=== PATIENT | female | born 1935 | race African-American/Black ===

== ENCOUNTER 2018-07-31 12:30 | Emergency (ER) | payer BC ==
[2018-07-31 12:50] VITALS: BP 119/59; PULSE 70; TEMP 98.6; BMI 36.3
--- NOTE | 2018-07-31 13:05 | PDOC ---
History of Present Illness - General Chief Complaint: Pain Stated Complaint: BACK PAIN Time Seen by Provider: 07/31/18 13:01 History Source: Patient Exam Limitations: No Limitations - History of Present Illness Initial Comments: 07/31/18 13:17 Came to ER department for evaluation of low back pain that initiated approximate 4 days ago. Denies trauma, exercise changes, and recent known exacerbant. Denies fever, denies any nausea or vomiting, denies any bowel changes. Denies dysuria or bleeding to urine. No history of kidney stones. States has had spasm in the past and doctor has given her some medication with relief but does not remember the name. Is unable to take ibuprofen but took Tylenol yesterday with some moderate resolved Occurred: reports: yesterday (3 days of pain that is worsening ) Severity: reports: mild, moderate Pain Location: reports: back Past History - Travel Traveled outside of the country in the last 30 days: Yes Close contact w/someone who was outside of country & ill: Yes - Past Medical History Allergies/Adverse Reactions: Allergies Allergy/AdvReac Type Severity Reaction Status Date / Time No Known Allergies Allergy Verified 07/31/18 12:47 Home Medications: Ambulatory Orders Amlodipine Besylate 10 mg PO ASDIR 07/31/18 Atorvastatin Calcium 20 mg PO ASDIR 07/31/18 Cephalexin Monohydrate [Keflex -] 500 mg PO Q8H #21 capsule 07/31/18 Triamterene/Hydrochlorothiazid [Triamterene-Hctz 37.5-25 mg Cp] 1 each PO ASDIR 07/31/18 COPD: No CHF: No - Surgical History Abdominal Surgery: No - Suicide/Smoking/Psychosocial Hx Smoking History: Current every day smoker Information on smoking cessation initiated: No Hx Alcohol Use: No Drug/Substance Use Hx: No Review of Systems - Review of Systems Able to Perform ROS?: Yes Is the patient limited Urdu proficient: Yes Constitutional: Yes: Symptoms Reported, See HPI, Malaise. No: Chills, Fever, Loss of Appetite HEENTM: Yes: See HPI. No: Symptoms Reported Respiratory: Yes: See HPI. No: Symptoms reported, Cough Cardiac (ROS): No: Symptoms Reported ABD/GI: No: Symptoms Reported Musculoskeletal: Yes: Symptoms Reported, See HPI, Back Pain, Muscle Pain ("spasm ) Integumentary: Yes: See HPI. No: Symptoms Reported, Rash Neurological: Yes: See HPI. No: Symptoms reported, Headache All Other Systems: Reviewed and Negative *Physical Exam - Vital Signs Last Vital Signs Temp Pulse Resp BP Pulse Ox 98.6 F 70 16 119/59 L 100 07/31/18 12:47 07/31/18 12:47 07/31/18 12:47 07/31/18 12:47 07/31/18 12:47 - Physical Exam General Appearance: Yes: Nourished, Appropriately Dressed, Apparent Distress, Mild Distress HEENT: positive: RONNY, Normal ENT Inspection, Normal Voice, TMs Normal, Pharynx Normal Neck: positive: Supple. 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 *DC/Admit/Observation/Transfer Diagnosis at time of Disposition: UTI (urinary tract infection) Qualifiers: Urinary tract infection type: site unspecified Hematuria presence: without hematuria Qualified Code(s): N39.0 - Urinary tract infection, site not specified - Discharge Dispostion Disposition: HOME Condition at time of disposition: Stable Decision to Admit order: No - Referrals - Patient Instructions Printed Discharge Instructions: DI for Urinary Tract Infection (UTI) Additional Instructions: Rest, drink lots of fluids: Teas, water, soups Avoid contact with others until fevers and symptoms resolved Lots of handwashing and good hygiene Continue [id number] medications for symptomatic relief Tylenol or Motrin for fever and pain Continue all of antibiotics until completed Followup with private physician in one week for repeat urinalysis/reevaluation Return to emergency department for worsened symptoms, fevers, dehydration - Post Discharge Activity Forms/Work/School Notes: Back to Work
[2018-07-31] MEDS ORDERED: ACETAMINOPHEN 500 MG TABLET (FP) PO ONE (13:17)
[2018-07-31] MEDS ORDERED: ACETAMINOPHEN 500 MG TABLET (FP) ONE (13:25)
[2018-07-31 13:45] LABS: URINE APPEARANCE CLEAR; URINE BILIRUBIN NEGATIVE (<2.0 mg/dL); URINE COLOR YELLOW; URINE GLUCOSE (UA) NEGATIVE (NEGATIVE); URINE KETONE NEGATIVE (NEGATIVE); URINE LEUK ESTERASE 3+ (NEGATIVE); URINE NITRITE NEGATIVE (NEGATIVE); URINE PROTEIN 2+ (NEGATIVE); URINE UROBILINOGEN NEGATIVE mg/dL (0.2-1.0)
[2018-07-31 15:23] LABS: EPI CELLS RARE /HPF (FEW); URINE HYALINE CAST 7 /lpf; URINE MUCUS RARE
== END 2018-07-31 14:28 | disposition home or self-care (01) ==
LOC: JERFT 12:30
DX: N39.0 Urinary tract infection, site not specified (principal); F17.210 Nicotine dependence, cigarettes, uncomplicated
CPT/HCPCS: 81003; 81015; 87077; 87086; 99281-25

== ENCOUNTER 2020-12-10 20:21 | Emergency (ER) | payer BC ==
[2020-12-10 20:31] VITALS: BP 154/89; PULSE 89; TEMP 98.9; BMI 27.8
== END 2020-12-10 21:27 | disposition home or self-care (01) ==
LOC: JER 20:21
DX: G44.209 Tension-type headache, unspecified, not intractable (principal); Z11.52 Encounter for screening for COVID-19
CPT/HCPCS: 99283-25; C9803; U0003; U0005

== ENCOUNTER 2022-06-05 06:00 | Day surgery (SDC) | payer BC ==
[2022-06-03 09:14] VITALS: BMI 22.8
[2022-06-05 06:47] LABS: HEMATOCRIT 41.2 % (32.4-45.2); HEMOGLOBIN 12.6 GM/dL (10.7-15.3); MCH 30.1 pg (25.7-33.7); MCHC 30.6 g/dl (32.0-36.0); MEAN CELL VOLUME 98.6 fl (80-96); MEAN PLT VOLUME 8.9 fl (7.5-11.1); PLATELET COUNT 118 10^3/uL (134-434); RBC 4.18 M/mm3 (3.60-5.2); RDW 18.5 % (11.6-15.6); WHITE BLOOD COUNT 5.1 K/mm3 (4.0-10.0)
[2022-06-05 06:54] LABS: INR 0.97 (0.83-1.09); PROTHROMBIN TIME (PATIENT) 11.2 SEC (9.7-13.0)
[2022-06-05 07:07] LABS: ALBUMIN 3.4 g/dl (3.4-5.0); BLOOD UREA NITROGEN 43.1 mg/dL (7-18); CALCIUM 9.2 mg/dL (8.5-10.1)
[2022-06-05 07:11] LABS: CREATININE 5.4 mg/dL (0.55-1.3)
[2022-06-05 07:12] LABS: BILIRUBIN,TOTAL 0.5 mg/dL (0.2-1); TOT PROT 6.5 g/dl (6.4-8.2)
[2022-06-05] MEDS ORDERED: ceFAZolin SODIUM 1 GM VIAL IVPB ONE (08:11)
[2022-06-05] MEDS ORDERED: LIDOCAINE HCL 1%, 10 MG/ML (50 mL VIAL) INF ONE ×2 (08:21)
[2022-06-05] MEDS ORDERED: POVIDONE-IODINE OINTMENT 10% - 28.4 GM TUBE TP ONE (08:24)
[2022-06-05] MEDS ORDERED: ONDANSETRON 4 MG/2 ML VIAL IVPUSH PRN (10:41)
[2022-06-05 13:00] VITALS: TEMP 97.5
[2022-06-05 13:17] VITALS: BP 103/58; PULSE 61; RESP 20
== END 2022-06-05 14:37 | disposition home or self-care (01) ==
LOC: JASU-SURG 06:00
PROVIDERS: ATTEND Surgery
PROC: 03180ZD Bypass Left Brachial Artery to Upper Arm Vein, Open Approach (ICD-10-PCS; principal; 2022-06-05 08:00)
DX: I12.0 Hypertensive chronic kidney disease with stage 5 chronic kidney disease or end stage renal disease (principal); N18.6 End stage renal disease; Z99.2 Dependence on renal dialysis
CPT/HCPCS: 36415; 80053; 85027; 85610; 93005; 93010; 94760

== ENCOUNTER 2022-06-06 21:43 | Emergency (ER) | payer BC ==
[2022-06-06 21:51] VITALS: BP 128/79; PULSE 65; RESP 17; BMI 23.2
[2022-06-06 22:05] VITALS: TEMP 98
== END 2022-06-06 22:50 | disposition home or self-care (01) ==
LOC: JER 21:43
DX: L76.22 Postprocedural hemorrhage of skin and subcutaneous tissue following other procedure (principal)
CPT/HCPCS: 99281-25

== ENCOUNTER 2023-08-15 17:26 | Observation (INO) | payer BC ==
[2023-08-15 18:35] LABS: BASO % 0.6 % (0-2.0); EOS % 0.9 % (0-4.5); HEMATOCRIT 30.9 % (32.4-45.2); HEMOGLOBIN 9.8 GM/dL (10.7-15.3); LYMPH % 14.4 % (8-40); MCH 32.2 pg (25.7-33.7); MCHC 31.9 g/dl (32.0-36.0); MEAN CELL VOLUME 100.8 fl (80-96); MONO % 9.3 % (3.8-10.2); NEUT % 74.8 % (42.8-82.8); PLATELET COUNT 111 10^3/uL (134-434); RBC 3.06 M/mm3 (3.60-5.2); RDW 17.5 % (11.6-15.6); WHITE BLOOD COUNT 4.4 K/mm3 (4.0-10.0)
[2023-08-15 18:51] LABS: POTASSIUM 3.5 mmol/L (3.5-5.1)
[2023-08-15 18:53] LABS: ALBUMIN 3.2 g/dl (3.4-5.0); BLOOD UREA NITROGEN 21.3 mg/dL (7-18); CALCIUM 8.7 mg/dL (8.5-10.1); MAGNESIUM 1.9 mg/dL (1.8-2.4)
[2023-08-15 18:56] LABS: CREATININE 3.4 mg/dL (0.55-1.3)
[2023-08-15 18:58] LABS: BILIRUBIN,TOTAL 0.7 mg/dL (0.2-1); TOT PROT 6.2 g/dl (6.4-8.2)
[2023-08-15] MEDS ORDERED: ACETAMINOPHEN 325 MG TABLET (FP) PO PRN (21:41)
[2023-08-15] MEDS ORDERED: DOCUSATE SODIUM 100 MG CAPSULE (FP) PO PRN (21:41)
[2023-08-15 22:56] LABS: POTASSIUM 4.9 mmol/L (3.5-5.1)
[2023-08-15 22:59] LABS: BLOOD UREA NITROGEN 24.9 mg/dL (7-18)
[2023-08-15 23:02] LABS: CREATININE 3.9 mg/dL (0.55-1.3)
[2023-08-16 06:19] LABS: BASO % 0.8 % (0-2.0); EOS % 2.4 % (0-4.5); HEMATOCRIT 28.8 % (32.4-45.2); HEMOGLOBIN 9.4 GM/dL (10.7-15.3); LYMPH % 29.9 % (8-40); MCH 32.8 pg (25.7-33.7); MCHC 32.6 g/dl (32.0-36.0); MEAN CELL VOLUME 100.5 fl (80-96); MEAN PLT VOLUME 9.1 fl (7.5-11.1); MONO % 11.6 % (3.8-10.2); NEUT % 55.3 % (42.8-82.8); PLATELET COUNT 101 10^3/uL (134-434); RBC 2.87 M/mm3 (3.60-5.2); RDW 17.4 % (11.6-15.6); WHITE BLOOD COUNT 4.1 K/mm3 (4.0-10.0)
[2023-08-16 06:20] LABS: INR 1.05 (0.83-1.09); PROTHROMBIN TIME (PATIENT) 12.2 SEC (9.7-13.0)
[2023-08-16 06:23] LABS: ACTIVATED PTT 27.9 SECONDS (25.2-36.5); POTASSIUM 3.9 mmol/L (3.5-5.1)
[2023-08-16 06:26] LABS: CALCIUM 9.2 mg/dL (8.5-10.1)
[2023-08-16 06:27] LABS: BLOOD UREA NITROGEN 28.2 mg/dL (7-18)
[2023-08-16 06:30] LABS: CREATININE 4.4 mg/dL (0.55-1.3)
[2023-08-16] MEDS ORDERED: metoPROLOL SUCCINATE 25 MG TAB.SR.24H (FP) PO ONE (10:19)
[2023-08-16] MEDS: metoPROLOL SUCCINATE 25 MG TAB.SR.24H (FP) PO SCH (10:24)
[2023-08-16] MEDS: ALLOPURINOL 100 MG TABLET (FP) PO SCH ×2 (13:25→22:22)
[2023-08-16 13:39] LABS: EPI CELLS >36 /uL (0-25.1); HYALINE CASTS 1 /uL (0-3.1); URINE APPEARANCE CLOUDY; URINE BACTERIA 875 /uL (0-1359); URINE BILIRUBIN NEGATIVE (NEGATIVE); URINE COLOR YELLOW; URINE GLUCOSE (UA) NEGATIVE (NEGATIVE); URINE KETONE NEGATIVE (NEGATIVE); URINE LEUK ESTERASE 3+ (NEGATIVE); URINE NITRITE NEGATIVE (NEGATIVE); URINE PROTEIN 2+ (NEGATIVE); URINE RBC 27 /uL (0-23.9); URINE UROBILINOGEN 0.2 mg/dL (0.2-1.0); URINE WBC 738 /uL (0-25.8)
[2023-08-17] MEDS: ALLOPURINOL 100 MG TABLET (FP) PO SCH ×3 (06:27→22:05)
[2023-08-17] MEDS: metoPROLOL SUCCINATE 25 MG TAB.SR.24H (FP) PO SCH (09:05)
[2023-08-17 12:44] VITALS: BMI 22.5
[2023-08-18] MEDS: ALLOPURINOL 100 MG TABLET (FP) PO SCH ×3 (06:43→21:27)
[2023-08-18 07:16] LABS: BASO % 0.9 % (0-2.0); EOS % 3.2 % (0-4.5); HEMATOCRIT 27.5 % (32.4-45.2); LYMPH % 33.2 % (8-40); MCH 32.8 pg (25.7-33.7); MCHC 32.6 g/dl (32.0-36.0); MEAN CELL VOLUME 100.4 fl (80-96); MEAN PLT VOLUME 9.2 fl (7.5-11.1); MONO % 12.2 % (3.8-10.2); NEUT % 50.5 % (42.8-82.8); PLATELET COUNT 102 10^3/uL (134-434); RBC 2.73 M/mm3 (3.60-5.2); RDW 16.7 % (11.6-15.6); WHITE BLOOD COUNT 4.2 K/mm3 (4.0-10.0)
[2023-08-18 07:30] LABS: POTASSIUM 4.2 mmol/L (3.5-5.1); SODIUM 141 mmol/L (136-145)
[2023-08-18 07:33] LABS: CALCIUM 9.2 mg/dL (8.5-10.1)
[2023-08-18 07:34] LABS: ALBUMIN 3.1 g/dl (3.4-5.0); CO2 24 mmol/L (21-32); GLUCOSE,RANDOM 72 mg/dL (74-106)
[2023-08-18 07:37] LABS: SGOT/AST 24 U/L (15-37); SGPT/ALT 19 U/L (13-61)
[2023-08-18 07:39] LABS: TOT PROT 5.9 g/dl (6.4-8.2)
[2023-08-18 07:40] LABS: ALK PHOS 111 U/L (45-117)
[2023-08-18 07:54] LABS: ANION GAP 7 mmol/L (4-13); BILIRUBIN,TOTAL 0.7 mg/dL (0.2-1); BLOOD UREA NITROGEN 57.6 mg/dL (7-18); CHLORIDE 110 mmol/L (98-107); CREATININE 7.8 mg/dL (0.55-1.3)
[2023-08-18] MEDS ORDERED: SODIUM CHLORIDE 250 ML IV PRN (09:37)
[2023-08-18] MEDS ORDERED: EPOETIN ALFA-EPBX 4,000 UNIT/ML VIAL IVPUSH ONE (10:00)
[2023-08-18] MEDS: metoPROLOL SUCCINATE 25 MG TAB.SR.24H (FP) PO SCH (14:01)
[2023-08-19 03:46] VITALS: RESP 18
[2023-08-19] MEDS: ALLOPURINOL 100 MG TABLET (FP) PO SCH (06:02)
[2023-08-19] MEDS: metoPROLOL SUCCINATE 25 MG TAB.SR.24H (FP) PO SCH (09:21)
[2023-08-19 09:22] VITALS: BP 131/63; PULSE 84; TEMP 98.1
== END 2023-08-19 11:18 | disposition home or self-care (01) ==
LOC: JER 17:26 → JERBED 18:40 → J4W 08-16 21:01
PROVIDERS: ADMIT Internal Medicine; ATTEND Family Medicine
PROC: 3E033GC Introduction of Other Therapeutic Substance into Peripheral Vein, Percutaneous Approach (ICD-10-PCS; principal; 2023-08-15)
DX: I12.0 Hypertensive chronic kidney disease with stage 5 chronic kidney disease or end stage renal disease (principal); R77.8 Other specified abnormalities of plasma proteins; R55 Syncope and collapse; N18.6 End stage renal disease; Z99.2 Dependence on renal dialysis; E78.00 Pure hypercholesterolemia, unspecified; D64.9 Anemia, unspecified; Z91.013 Allergy to seafood
CPT/HCPCS: 36415; 70450-TC; 71046-TC-FY; 80048; 80053; 81003; 82550; 82962; 83605; 83735; 84100; 84484; 85025; 85610; 85730; 86704; 86803; 87086; 87340; 87517; 93005; 93010; 96374; 99285-25; G0378; Q5106

== ENCOUNTER 2024-02-02 18:29 | Observation (INO) | payer BC ==
[2024-02-02 19:45] LABS: BASO % 0.5 % (0-2.0); EOS % 1.9 % (0-4.5); HEMATOCRIT 35.1 % (32.4-45.2); HEMOGLOBIN 11.4 GM/dL (10.7-15.3); LYMPH % 31.6 % (8-40); MCH 32.2 pg (25.7-33.7); MCHC 32.5 g/dl (32.0-36.0); MEAN CELL VOLUME 99.1 fl (80-96); MEAN PLT VOLUME 10.1 fl (7.5-11.1); MONO % 11.9 % (3.8-10.2); NEUT % 54.1 % (42.8-82.8); PLATELET COUNT 188 10^3/uL (134-434); RBC 3.55 M/mm3 (3.60-5.2); RDW 17.6 % (11.6-15.6); WHITE BLOOD COUNT 4.3 K/mm3 (4.0-10.0)
[2024-02-02 20:01] LABS: POTASSIUM 3.4 mmol/L (3.5-5.1)
[2024-02-02 20:04] LABS: CALCIUM 9.2 mg/dL (8.5-10.1)
[2024-02-02 20:05] LABS: ALBUMIN 3.8 g/dl (3.4-5.0); BLOOD UREA NITROGEN 21.2 mg/dL (7-18)
[2024-02-02 20:08] LABS: CREATININE 3.6 mg/dL (0.55-1.3); PHOSPHOROUS 2.9 mg/dL (2.5-4.9)
[2024-02-02 20:10] LABS: BILIRUBIN,TOTAL 1.4 mg/dL (0.2-1); TOT PROT 6.9 g/dl (6.4-8.2)
[2024-02-02] MEDS ORDERED: DOCUSATE SODIUM 100 MG CAPSULE (FP) PO PRN (23:19)
[2024-02-03 07:12] LABS: BASO % 0.8 % (0-2.0); EOS % 3.3 % (0-4.5); HEMATOCRIT 33.3 % (32.4-45.2); LYMPH % 26.9 % (8-40); MCH 32.6 pg (25.7-33.7); MCHC 32.9 g/dl (32.0-36.0); MEAN CELL VOLUME 99.2 fl (80-96); MEAN PLT VOLUME 8.7 fl (7.5-11.1); MONO % 10.7 % (3.8-10.2); NEUT % 58.3 % (42.8-82.8); PLATELET COUNT 121 10^3/uL (134-434); RBC 3.36 M/mm3 (3.60-5.2); RDW 16.6 % (11.6-15.6); WHITE BLOOD COUNT 4.4 K/mm3 (4.0-10.0)
[2024-02-03 07:34] LABS: POTASSIUM 3.4 mmol/L (3.5-5.1)
[2024-02-03 07:38] LABS: CALCIUM 9.4 mg/dL (8.5-10.1)
[2024-02-03 07:39] LABS: BLOOD UREA NITROGEN 25.6 mg/dL (7-18)
[2024-02-03 07:42] LABS: CREATININE 4.5 mg/dL (0.55-1.3)
[2024-02-03] MEDS: FUROSEMIDE 40 MG TABLET (FP) PO SCH (09:34)
[2024-02-03] MEDS ORDERED: PATIENT'S OWN MEDICATION (NON-FORMULARY) (Ferric Citrate [Auryxia] 210 MG Tablet) PO SCH (10:00)
[2024-02-03] MEDS: VITAMIN B COMPLEX W/C COMBO TABLET (FP) PO SCH (11:05)
[2024-02-03] MEDS: ALLOPURINOL 300 MG TABLET (FP) PO SCH (11:05)
[2024-02-03] MEDS ORDERED: SODIUM CHLORIDE 250 ML IV PRN (14:27)
[2024-02-03 14:28] VITALS: BMI 19.7
[2024-02-03] MEDS: ATORVASTATIN CA 20 MG TABLET (FP) PO SCH (22:17)
[2024-02-04 09:14] LABS: ARTERIAL BLD GAS O2 SATURATION 93.1 % (95-98); ARTERIAL BLOOD GAS BASE EXCESS -2.1 mmol/L (-2-2); ARTERIAL BLOOD GAS PO2 65.7 mmHg (80-100); ARTERIAL BLOOD GAS pH 7.399 (7.350-7.450)
[2024-02-04 09:23] LABS: ALLENS TEST POSITIVE
[2024-02-04 10:30] LABS: POTASSIUM 3.8 mmol/L (3.5-5.1)
[2024-02-04 10:32] LABS: CALCIUM 9.6 mg/dL (8.5-10.1)
[2024-02-04 10:33] LABS: ALBUMIN 3.3 g/dl (3.4-5.0); BLOOD UREA NITROGEN 34.8 mg/dL (7-18)
[2024-02-04 10:36] LABS: CREATININE 6.1 mg/dL (0.55-1.3)
[2024-02-04 10:38] LABS: BILIRUBIN,TOTAL 1.2 mg/dL (0.2-1); TOT PROT 6.2 g/dl (6.4-8.2)
[2024-02-05 09:45] VITALS: BP 149/105; PULSE 84; RESP 16; TEMP 97.8
== END 2024-02-05 12:00 | disposition home or self-care (01) ==
LOC: JER 18:29 → JERBED 23:13 → J4S 02-03 01:00
PROVIDERS: ADMIT Internal Medicine; ATTEND Family Medicine
PROC: 3E0337Z Introduction of Electrolytic and Water Balance Substance into Peripheral Vein, Percutaneous Approach (ICD-10-PCS; principal; 2024-02-02)
DX: R00.1 Bradycardia, unspecified (principal); R09.02 Hypoxemia; N18.6 End stage renal disease; R79.89 Other specified abnormal findings of blood chemistry; I10 Essential (primary) hypertension; J45.909 Unspecified asthma, uncomplicated; R55 Syncope and collapse; E78.5 Hyperlipidemia, unspecified; D64.9 Anemia, unspecified; M10.9 Gout, unspecified; Z99.2 Dependence on renal dialysis; Z91.013 Allergy to seafood; Z88.8 Allergy status to other drugs, medicaments and biological substances
CPT/HCPCS: 36415; 36600; 71045-TC-FY; 80048; 80053; 82803; 83735; 84100; 84443; 84484; 85025; 86704; 86803; 87340; 93005; 93010; 93306-TC; 94761; 97116-GP; 97161-GP; 99285-25; G0378

== ENCOUNTER 2024-02-25 11:14 | Emergency (ER) | payer BC ==
[2024-02-25 11:27] VITALS: TEMP 97.9; BMI 18.7
[2024-02-25 13:26] LABS: BASO % 0.8 % (0-2.0); EOS % 1.9 % (0-4.5); HEMATOCRIT 37.6 % (32.4-45.2); HEMOGLOBIN 12.2 GM/dL (10.7-15.3); LYMPH % 24.8 % (8-40); MCH 32.4 pg (25.7-33.7); MCHC 32.5 g/dl (32.0-36.0); MEAN CELL VOLUME 99.5 fl (80-96); MEAN PLT VOLUME 8.6 fl (7.5-11.1); MONO % 12.8 % (3.8-10.2); NEUT % 59.7 % (42.8-82.8); PLATELET COUNT 124 10^3/uL (134-434); RBC 3.78 M/mm3 (3.60-5.2); RDW 17.5 % (11.6-15.6); WHITE BLOOD COUNT 4.5 K/mm3 (4.0-10.0)
[2024-02-25 13:33] LABS: INR 0.93 (0.83-1.09); PROTHROMBIN TIME (PATIENT) 10.7 SEC (9.7-13.0)
[2024-02-25 13:36] LABS: ACTIVATED PTT 28.4 SECONDS (25.2-36.5)
[2024-02-25 13:52] LABS: POTASSIUM 4.9 mmol/L (3.5-5.1)
[2024-02-25 13:54] LABS: BLOOD UREA NITROGEN 36.8 mg/dL (7-18); CALCIUM 9.9 mg/dL (8.5-10.1)
[2024-02-25 13:55] LABS: ALBUMIN 3.5 g/dl (3.4-5.0)
[2024-02-25 13:58] LABS: CREATININE 7.2 mg/dL (0.55-1.3)
[2024-02-25 13:59] LABS: BILIRUBIN,TOTAL 0.9 mg/dL (0.2-1); TOT PROT 6.6 g/dl (6.4-8.2)
[2024-02-25 14:02] LABS: N-TERMINAL BNP 8186.6 pg/ml (5-450)
[2024-02-25 14:25] VITALS: BP 108/60; PULSE 71; RESP 22
== END 2024-02-25 14:00 | disposition short-term general hospital (02) ==
LOC: JER 11:14
DX: I31.39 Other pericardial effusion (noninflammatory) (principal); I31.4 Cardiac tamponade
CPT/HCPCS: 0241U-QW; 36415; 80053; 83880; 84484; 85025; 85610; 85730; 86850; 86900; 86901; 93005; 93010; 99285-25

== ENCOUNTER 2024-03-17 15:37 | Emergency (ER) | payer BC ==
[2024-03-17 16:12] VITALS: TEMP 98.4; BMI 18.8
[2024-03-17] MEDS ORDERED: METOPROLOL TARTRATE 5 MG/5 ML VIAL ONE ×2 (16:40→17:10)
[2024-03-17] MEDS: METOPROLOL TARTRATE 5 MG/5 ML VIAL IVPUSH ONE ×2 (16:46→17:16)
[2024-03-17 16:55] LABS: VENOUS BASE EXCESS -2.4 mmol/L (-2-2); VENOUS O2 SATURATION 71.6 % (70-80); VENOUS PCO2 39.6 mmHg (38-52); VENOUS PH 7.373 (7.310-7.410)
[2024-03-17 16:59] LABS: BASO % 0.7 % (0-2.0); EOS % 0.6 % (0-4.5); HEMATOCRIT 34.6 % (32.4-45.2); HEMOGLOBIN 11.2 GM/dL (10.7-15.3); LYMPH % 18.8 % (8-40); MCH 31.7 pg (25.7-33.7); MCHC 32.3 g/dl (32.0-36.0); MEAN CELL VOLUME 98.1 fl (80-96); MONO % 12.7 % (3.8-10.2); NEUT % 67.2 % (42.8-82.8); PLATELET COUNT 197 10^3/uL (134-434); RBC 3.53 M/mm3 (3.60-5.2); RDW 17.9 % (11.6-15.6); WHITE BLOOD COUNT 6.9 K/mm3 (4.0-10.0)
[2024-03-17 17:02] LABS: INR 0.96 (0.83-1.09)
[2024-03-17 17:05] LABS: ACTIVATED PTT 29.7 SECONDS (25.2-36.5)
[2024-03-17 17:06] VITALS: PULSE 123
[2024-03-17 17:16] VITALS: BP 112/70
[2024-03-17 17:18] LABS: CHLORIDE 102 mmol/L (98-107); POTASSIUM 3.9 mmol/L (3.5-5.1); SODIUM 140 mmol/L (136-145)
[2024-03-17 17:19] VITALS: RESP 18
[2024-03-17 17:21] LABS: BLOOD UREA NITROGEN 51.4 mg/dL (7-18); CALCIUM 9.9 mg/dL (8.5-10.1)
[2024-03-17 17:22] LABS: ALBUMIN 3.2 g/dl (3.4-5.0); ANION GAP 16 mmol/L (4-13); CO2 22 mmol/L (21-32); GLUCOSE,RANDOM 88 mg/dL (74-106); MAGNESIUM 2.4 mg/dL (1.8-2.4)
[2024-03-17 17:25] LABS: PHOSPHOROUS 4.5 mg/dL (2.5-4.9); SGOT/AST 25 U/L (15-37); SGPT/ALT 18 U/L (13-61)
[2024-03-17 17:26] LABS: BILIRUBIN,TOTAL 0.6 mg/dL (0.2-1); TOT PROT 6.7 g/dl (6.4-8.2)
[2024-03-17 17:27] LABS: ALK PHOS 95 U/L (45-117)
[2024-03-17 17:30] LABS: CREATININE 8.5 mg/dL (0.55-1.3)
[2024-03-17 17:44] LABS: N-TERMINAL BNP 47633.3 pg/ml (5-450)
== END 2024-03-17 17:30 | disposition short-term general hospital (02) ==
LOC: JER 15:37
DX: I48.91 Unspecified atrial fibrillation (principal); I24.8 Other forms of acute ischemic heart disease; I10 Essential (primary) hypertension
CPT/HCPCS: 36415; 71045-TC-FY; 80053; 82550; 82803; 83735; 83880; 84100; 84443; 84484; 85025; 85610; 85730; 86850; 86900; 86901; 93005; 93010; 93308; 99291